=== PATIENT | female | born 1960 | race Caucasian/White ===

== ENCOUNTER 2022-05-20 04:11 | Day surgery (SDC) | payer OTHER ==
[2022-05-17 15:12] VITALS: BMI 21.7
[2022-05-20 09:11] VITALS: PULSE 58
[2022-05-20 09:27] VITALS: BP 109/60; RESP 16; TEMP 98
== END 2022-05-20 09:33 | disposition home or self-care (01) ==
LOC: JASU-ENDO 04:11
PROVIDERS: ATTEND Internal Medicine Gastroenterology
PROC: 0DJD8ZZ Inspection of Lower Intestinal Tract, Via Natural or Artificial Opening Endoscopic (ICD-10-PCS; principal; 2022-05-20 08:45)
DX: Z12.11 Encounter for screening for malignant neoplasm of colon (principal); K63.89 Other specified diseases of intestine; K64.8 Other hemorrhoids